=== PATIENT | male | born 1975 | race Caucasian/White ===

== ENCOUNTER 2021-03-21 10:46 | Outpatient (CLI) | payer OTHER, SELFPAY ==
--- NOTE | 2021-03-21 10:49 | MR_ITS ---
WS: [id number] MRI LUMBAR SPINE NONCONTRAST TECHNIQUE: Sagittal T1, T2 and STIR imaging. Axial T1 and T2 imaging. CLINICAL INFORMATION: LOW BACK PAIN COMPARISON: None. FINDINGS: Mild lumbar curve. No acute compression. No high-grade central canal stenosis. L1-L2: Normal. L2-L3: No significant disc bulging. Spinal canal and foramen are patent. Mild facet arthropathy. L3-L4: Minimal annular bulging. Slight narrowing of the left subarticular recess with mild facet arth ropathy. Spinal canal and foramen are patent. L4-L5: Mild annular bulging with mild central canal stenosis. Slight impingement traversing L5 nerve roots in the subarticular recess. Mild facet arthropathy. Mild bilateral foraminal narrowing. L5-S1: Mild annular bulging. Slight effacement of ventral thecal sac. Mild facet arthropathy. Spinal canal and foramen are patent. Visualized pelvic bony structures: Normal. Paravertebral soft tissues: Normal. MR/MR lumbar spine wo con* [id number] IMPRESSION: 1. Mild lumbar curve. No acute compression. No high-grade central canal stenos is. 2. Mild annular bulging L4-5 with mild central canal stenosis. Slight impingem ent subarticular recess bilaterally and traversing L5 nerve roots. Mild facet a rthropathy. 3. Mild bilateral L4-5 foraminal narrowing. 4. Mild annular bulging L5-S1 with slight effacement of ventral thecal sac. Mi ld facet arthropathy. Spinal canal and foramen are patent at this level..
--- NOTE | 2021-03-21 10:49 | MR_ITS ---
WS: [id number] MRI THORACIC SPINE WITHOUT CONTRAST TECHNIQUE: Sagittal T1, T2 and STIR imaging. Axial T2 imaging. Noncontrast imaging obtained. CLINICAL INFORMATION: THORACIC BACK PAIN W/RT SCIATIC COMPARISON: None. FINDINGS: Mild thoracic curve. Mild thoracic kyphosis. No high-grade central canal stenosis. Cord signal is nor mal. CSF pulsation artifact in the dorsal spinal canal. Tiny central protrusions in the upper and mid thoracic spine with slight effacement of the ventral thecal sac. Cord signal is normal. Small disc protrusions more prominent at T7-T8, T9-T10, and right T10-T11. Mild facet arthropathy in the lower thoracic spine. Tiny right foraminal protrusion T10-11 with mild right foraminal narrowing . Tiny protrusion at T7-8 with slight contact of the thoracic cord. No significant central canal sten osis. Normal caliber thoracic aorta. Adrenal glands are normal. Partially visualized right hepatic cyst. MR/MR thoracic spin wo con* [id number] IMPRESSION: 1. Mild thoracic curve. Mild thoracic kyphosis. No acute compression fractures . Cord signal is normal. 2. Tiny right foraminal protrusion T10-11 with mild right foraminal narrowing. 3. A few tiny shallow central/pericentral disc protrusions more prominent at T 7-8 with slight contact of the thoracic cord. No significant central canal sten osis. 4. Mild facet arthropathy lower thoracic spine.
== END 2021-03-21 10:47 | disposition home or self-care (01) ==
LOC: RADSHAW 10:47
PROVIDERS: PCP Nurse Practitioner; Visit Provider Nurse Practitioner
DX: M47.814 Spondylosis without myelopathy or radiculopathy, thoracic region (principal); M51.24 Other intervertebral disc displacement, thoracic region; M51.27 Other intervertebral disc displacement, lumbosacral region; M51.26 Other intervertebral disc displacement, lumbar region
CPT/HCPCS: 72146; 72148

== ENCOUNTER → 2024-12-08 08:44 | Outpatient (BNVA) | payer OTHER, SELFPAY | PROVIDERS: PCP Nurse Practitioner; Visit Provider Nurse Practitioner Family | DX: H02.64 Xanthelasma of left upper eyelid (principal); L72.0 Epidermal cyst; D22.5 Melanocytic nevi of trunk; Z12.83 Encounter for screening for malignant neoplasm of skin; L91.8 Other hypertrophic disorders of the skin; R20.8 Other disturbances of skin sensation; L53.8 Other specified erythematous conditions; Z78.9 Other specified health status; D48.5 Neoplasm of uncertain behavior of skin | CPT/HCPCS: 11102; 17110; 99203 ==